=== PATIENT | male | born 1965 | race Caucasian/White ===

== ENCOUNTER 2025-02-12 15:28 | Emergency (ER) | payer MEDICARE, MEDICAID, SELFPAY ==
[2025-02-12 15:29] VITALS: BMI 21.7
[2025-02-12 15:48] VITALS: BP 157/73; PULSE 73; RESP 20; O2SAT 95
--- NOTE | 2025-02-12 15:51 | PD.EDMALE ---
ED Male Genitalurinary RME/HPI General Chief complaint: Urogenital-Male Stated complaint: BLOOD ON DIAPER IN URINE TODAY, ON ANTIBIOTIC Time Seen by Provider: 02/12/25 15:37 Arrival date/time: 02/12/25 15:28 Limitations: language barrier and other RME / HPI RME / HPI Narrative: DR. WILD PETERS ED EVALUATION: 59-year-old male with past medical history of cerebral palsy, seizure disorder, and osteopenia presents to the Emergency Department from a long term with complaint of blood in the diaper and visible blood from the penis. History is provided by caregiver, as the patient is nonverbal. Caregivers report the patient was seen at his clinic at 9 a.m. on Friday for feeling sick and doctor noted a red left ear and was diagnosed with a left ear infection, for which he was prescribed amoxicillin. At 10 AM today, blood was noted in his diaper, and again around 1:30 PM with visible blood from the penis. No fever today, no diarrhea. Per caregiver, patient is not lethargic and is at his neurological baseline. No known drug allergies. Current medications include lactulose and Depakote. Related Data Previous Rx's ?Medication ?Instructions ?Recorded ciprofloxacin 500 mg/5 mL oral 500 mg (5 mL) PO Q12H #70 mL 02/12/25 suspension Allergies Allergy/AdvReac Type Severity Reaction Status Date / Time No Known Allergies Allergy Verified 02/12/25 15:31 Review of Systems Review of Systems Systems Reviewed: All systems reviewed, normal except as documented Past Medical History Social History SMOKING STATUS: Never smoker Past Medical History Comments PMH COMMENT: Cerebral palsy, seizure disorder, and osteopenia. No known drug allergies. Current medications include lactulose and Depakote. ED Exam General Limitations: Present language barrier and other General appearance: Present in no apparent distress and other (at baseline; looks chronically ill) Head Head exam: Present atraumatic, normocephalic and normal inspection Eye Eye exam: Present normal appearance, PERRL and EOMI ENT ENT exam: Present normal exam, normal oropharynx and mucous membranes moist Neck Neck exam: Present normal inspection and trachea midline Chest Chest inspection: Present normal inspection and symmetric chest wall rise Respiratory Respiratory exam: Present normal lung sounds bilaterally Cardiovascular Cardiovascular exam: Present regular rate, normal rhythm and normal heart sounds Abdominal Exam Abdominal exam: Present soft and normal bowel sounds; Absent distention, tenderness, guarding, rebound or rigidity Extremities Exam Extremities exam: Present other (contracted) Back Exam Back exam: Present normal inspection Neurological Exam Neurological exam: Present other (Per caregiver, at his neurological baseline.) Psychiatric Psychiatric exam: Present other (at baseline) Skin Skin exam: Present warm, dry, intact and normal color Course Quality Measures none Orders Category Date Time Status UA, C/S IF [Urinalysis, C/S if Indicated] Stat Lab 02/12/25 16:56 Completed Urine Culture Stat Lab 02/12/25 16:56 Completed cefTRIAXone [Rocephin] 1,000 mg Med 02/12/25 18:20 Discontinued Lidocaine 1% 20 ml [Xylocaine 1% 20 ML] 2.1 ml IM NOW Vital Signs Vital signs: Vital Signs Pulse Rate 73 02/12/25 15:48 Respiratory Rate 20 02/12/25 15:48 Blood Pressure 157/73 H 02/12/25 15:48 Pulse Oximetry (%) 95 02/12/25 15:48 Oxygen Delivery Method Room Air 02/12/25 15:48 Urogenital - Male MDM Narrative MDM Narrative:: Imelda Cormier am scribing for and in the presence of Dr. Mckinney. Patient data External records reviewed:: [facility] previous records Clinical information provided by:: senior catering sales manager Social determinants that could affect healthcare access:: housing (from long term) Patient has the following chronic illnesses:: Cerebral palsy, seizure disorder, and osteopenia. No known drug allergies. Current medications include lactulose and Depakote. How is presenting disease/condition affected by chronic disease/condition?: exacerbated by Evaluation data The following diagnostics were reviewed and interpreted by me:: lab results Lab and/or radiology exams considered but not ordered:: none Interpretation Summary: See narrative above. Medications / Prescriptions Medications or Prescriptions considered but not ordered:: none Medication administrations:: Medication Administration History Discontinued Medications Ceftriaxone Sodium 1,000 mg/ (Lidocaine HCl 2.1 ml) 0 mg IM NOW ONE Stop: 02/12/25 18:21 Last Admin: 02/12/25 19:00 Dose: 1 mg Documented By: CG Comments: Gram see above if any Consultations Consultation(s) initiated? (list below): No Diagnosis Urogenital Male Differential Diagnosis: other (urethral trauma or irritation, urinary tract infection with hematuria, and Depakote-induced thrombocytopenia or coagulopathy) Most likely diagnosis given after review of the tests above:: No official diagnoses at this time, still pending diagnostic tests. Patient signout to the awake overnight counselor provider. Admission Indicated Admission indicated?: not indicated Explain why admission is indicated or not indicated:: No final disposition plan at this time, still pending diagnostic tests. Patient signout to the awake overnight counselor provider. Admission Request Was there a request for admission?: No Disposition Plan Disposition Plan: other (specify) (Patient signed to Dr. Martins.) Discharge Plan Plan Patient Disposition: HOME (Self Care) Prescriptions/Referrals Prescriptions/Med Rec: New ciprofloxacin 500 mg/5 mL suspension,microcapsule recon 500 mg PO Q12H Qty: 70 0RF Problem List Clinical Impression: Urinary tract infection Patient/Caregiver Discharge Instructions Print Language: Slovenian Stand Alone Forms: [facility] Info., Patient Portal Info Letter
[2025-02-12 17:08] LABS: Collection Type, Urine Clean Catch; Squamous Epithelial Cell,Urine 0 /hpf (0-5)
[2025-02-12 17:27] LABS: Bilirubin,Urine Negative (Negative); Blood,Urine 3+ (Negative); Clarity,Urine Turbid (Clear/Hazy); Glucose, Urine Negative (Negative); Ketones,Urine Negative (Negative); Leukocyte Esterase,Urine Positive (Negative); Nitrite,Urine Positive (Negative); PH,Urine 7.5 (5.0-7.0); Protein,Urine 3+ (Neg - Trace); RBC,Urine 470 /hpf (0-3); Specific Gravity,Urine 1.019 (1.001-1.035); Urobilinogen,Urine Negative mg/dL (0.0-1.0); WBC,Urine 14 /hpf (0-5)
[2025-02-12 17:30] LABS: Color,Urine Yellow (Lt Yel-Yel); Culture Indicated,Urine Yes
[2025-02-12 17:32] LABS: Bacteria,Urine 3+
--- NOTE | 2025-02-12 18:17 | PD.EDADDENDU ---
Emergency Room Addendum Addendum Narrative: 1800: Care assumed from Dr. Mckinney (emergency physician). Past medical, surgical, social and family history reviewed. Vitals and home medications reviewed. Results and treatment plan discussed. I will assume the care of the patient at this time and will follow the patient, pending urine culture. The following addendum documentation note is intended to reflect any pending information, findings, or radiology results not included in the patient?s initial chart by the previous shift scribe.
[2025-02-12 18:47] VITALS: BP 160/83; PULSE 93; RESP 18; TEMP 37.1; O2SAT 91
[2025-02-12] MEDS: cefTRIAXone 1,000 MG, LIDOCAINE 1% 20 ML 2.1 ML IM (19:00)
== END 2025-02-12 19:31 | disposition home or self-care (01) ==
LOC: SERX 19:04
PROVIDERS: Emergency Provider Emergency Medicine
DX: N39.0 Urinary tract infection, site not specified (principal)
CPT/HCPCS: 81001; 87077; 87086; 87186; 96372; 99283; J0696; J3490